=== PATIENT | male | born 1950 ===

== ENCOUNTER 2016-11-04 07:04 | Emergency (ER) | payer BC ==
[2016-11-04 07:22] VITALS: BMI 35.4
[2016-11-04] MEDS ORDERED: Oxycodone/Acetaminophen 5/325 mg Tab PO STA (08:40)
[2016-11-04] MEDS ORDERED: Oxycodone/Acetaminophen 5/325 mg Tab ONE (09:01)
--- NOTE | 2016-11-04 09:07 | RAD ---
PROCEDURE: Right Knee Radiographs. HISTORY: pain COMPARISON: None. FINDINGS: BONES: Normal. No fracture. JOINTS: Normal. No osteoarthritis. JOINT EFFUSION: None. OTHER FINDINGS: None. IMPRESSION: Normal radiographs of the right knee.
[2016-11-04 09:32] VITALS: BP 122/82; PULSE 57; RESP 20; TEMP 98; O2SAT 96
--- NOTE | 2016-11-04 09:45 | C.PDOC ---
History Of Present Illness Patient is a 66 y/o male that presents to the ED for evaluation of right knee pain. Patient states that his knee pain has been ongoing for 6 months. Pt states he fell at work approximately 6 months ago, and was on worker's compensation. Notes having physical therapy done, but states his pain still persists. Patient states that his pain has worsened, and feels that he may have over used his knee at work. Notes taking Naproxen, and Ibuprofen at home, but does not take it anymore due to abdominal discomfort. Otherwise, denies any new injury, extremity weakness/numbness, fever, or any other associated symptoms at this time. Time Seen by Provider: 11/04/16 07:36 Chief Complaint (Nursing): Lower Extremity Problem/Injury History Per: Patient History/Exam Limitations: no limitations Onset/Duration Of Symptoms: Days Current Symptoms Are (Timing): Still Present Recent travel outside of the [place]: No Additional History Per: Patient Past Medical History Reviewed: Historical Data, Nursing Documentation, Vital Signs Vital Signs: Last Vital Signs Temp 98 F 11/04/16 09:32 Pulse 57 L 11/04/16 09:32 Resp 20 11/04/16 09:32 BP 122/82 11/04/16 09:32 Pulse Ox 96 11/04/16 11:30 - Medical History PMH: HTN, Hyperlipidemia Family History: States: Unknown Family Hx - Social History Hx Alcohol Use: No Hx Substance Use: No - Immunization History Hx Influenza Vaccination: Yes (2015) Hx Pneumococcal Vaccination: Yes (2016) Review Of Systems Except As Marked, All Systems Reviewed And Found Negative. Constitutional: Negative for: Fever, Chills Musculoskeletal: Positive for: Leg Pain (right knee pain) Neurological: Negative for: Weakness, Numbness Physical Exam - Physical Exam Appears: Non-toxic, No Acute Distress Skin: Normal Color, Warm, Dry Head: Atraumatic, Normacephalic Eye(s): bilateral: Normal Inspection, EOMI Neck: Normal ROM, Supple Extremity: Normal ROM, Tenderness (diffuse tenderness to medial aspect of right knee), No Pedal Edema, No Calf Tenderness, Capillary Refill (< 2 sec.), No Deformity, No Swelling (no calf swelling) Extremity: Bilateral: Normal Color And Temperature, Normal ROM Pulses: Left Dorsalis Pedis: Normal, Right Dorsalis Pedis: Normal Neurological/Psych: Oriented x3, Normal Speech, Normal Cognition, Normal Motor, Normal Sensation ED Course And Treatment O2 Sat by Pulse Oximetry: 96 (on RA) Pulse Ox Interpretation: Normal - Other Rad Right knee x-ray X-Ray: Viewed By Me, Read By Radiologist Interpretation: FINDINGS: BONES: Normal. No fracture. JOINTS: Normal. No osteoarthritis. JOINT EFFUSION: None. OTHER FINDINGS: None. IMPRESSION: Normal radiographs of the right knee. Progress Note: Right knee x-ray ordered and reviewed. Patient was given Percocet in the ED. Knee brace applied to right knee by CP and checked by me. Crutches offered to patient, but he declined. Patient is being discharged home with instructions to follow up with orthopedist in 1-2 days. Disposition - Disposition Referrals: Ama Werner MD [Staff Provider] - Disposition: HOME/ ROUTINE Disposition Time: 09:43 Condition: STABLE Additional Instructions: Follow up with PMD within 1-2 days. Return to ED if feel worse. 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 - Scribe Statement The provider has reviewed the documentation as recorded by the Soniaibe Winnie Amanda All medical record entries made by the Scribe were at my direction and personally dictated by me. I have reviewed the chart and agree that the record accurately reflects my personal performance of the history, physical exam, medical decision making, and the department course for this patient. I have also personally directed, reviewed, and agree with the discharge instructions and disposition.
== END 2016-11-04 10:03 | disposition home or self-care (01) ==
LOC: C.ER 07:04
DX: M25.561 Pain in right knee (principal)